=== PATIENT | male | born 1975 | race Caucasian/White ===

== ENCOUNTER 2020-11-25 08:58 | Emergency (ER) | payer OTHER ==
--- NOTE | 2020-11-25 10:11 | EDM.PDOC ---
ED HPI GENERAL MEDICAL PROBLEM - General Chief Complaint: ENT Problem Stated Complaint: L EYE IS SWOLLEN W/MINOR PAIN Time Seen by Provider: 11/25/20 09:35 - History of Present Illness INITIAL COMMENTS - FREE TEXT/NARRATIVE: History of present illness: [] The patient has 2 days of irritation of the left eye. It doesn't affect his vision. He has no systemic signs of illness. 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 The patient's vision is verified by nurses and is excellent in both eyes. The patient has erythema and swelling especially in the lower lid. Review of systems: As per history of present illness and below otherwise all systems reviewed and negative. Past medical history: As per history of present illness and as reviewed below otherwise noncontributory. Surgical history: As per history of present illness and as reviewed below otherwise noncontributory. Social history: No reported history of drug or alcohol abuse. Family history: As per history of present illness and as reviewed below otherwise noncontributory. Physical exam: Constitutional - well developed, well-nourished and in no acute distress HEENT - normocephalic, no evidence of trauma - external nose and mouth normal - no mass in neck and no JVD - mucosae moist EYES - full EOM, PERRL, no icterus -foreign body search negative including lid eversion. Fluorescein exam negative for corneal involvement. Anterior chamber normal. The patient has full extraocular motion with no pain. The palpebral conjunctiva and the lower lid is extremely inflamed with swelling and some discharge along the lash line. Patient also has a small white lesion just inside the everted lower lid. Respiratory - no respiratory distress, equal bilateral expansion Musculoskeletal no gross deformity of long bones or joints - no tenderness, swelling or edema Neurologic - Alert and oriented times four - CN II-XII grossly intact - motor sensory and coordination symmetrically normal Psychiatric - appropriate mood and affect with normal thought content Hematologic - No petechiae or purpura - mucosa appropriate color and sclera not pale - normal nail bed color and refill Integument - no rash or evidence of trauma - normal turgor Diagnostics: [] Therapeutics: [] Impression: [] Plan: [] Definitive disposition and diagnosis as appropriate pending reevaluation and review of above. left eye Pain Score (Numeric/FACES): 4 - Related Data Allergies Allergy/AdvReac Type Severity Reaction Status Date / Time No Known Allergies Allergy Verified 11/25/20 09:37 Home Meds: Home Meds Ciprofloxacin [Ciloxan 0.3% Ophth Soln] 1 - 2 drop OP Q4H #5 ml 11/25/20 [Rx] Past Medical History - Past Health History Medical/Surgical History: Denies Medical/Surgical History HEENT History: Reports: None Cardiovascular History: Reports: None Respiratory History: Reports: None Gastrointestinal History: Reports: None Genitourinary History: Reports: None Neurological History: Reports: None Psychiatric History: Reports: None Endocrine/Metabolic History: Reports: None Hematologic History: Reports: None Immunologic History: Reports: None Oncologic (Cancer) History: Reports: None Dermatologic History: Reports: None - Infectious Disease History Infectious Disease History: Reports: None - Past Surgical History Head Surgeries/Procedures: Reports: None GI Surgical History: Reports: Appendectomy Musculoskeletal Surgical History: Reports: Shoulder Surgery Social & Family History - Family History Family Medical History: No Pertinent Family History Cardiac: Reports: CAD, Heart Failure Respiratory: Reports: Asthma - Tobacco Use Tobacco Use Status *Q: Never Tobacco User Second Hand Smoke Exposure: No - Caffeine Use Caffeine Use: Reports: None - Recreational Drug Use Recreational Drug Use: No ED ROS GENERAL - Review of Systems Review Of Systems: Comprehensive ROS is negative, except as noted in HPI. ED EXAM, GENERAL - Physical Exam Exam: See Below Free Text/Narrative:: My physical exam is in the HPI Course - Vital Signs Last Recorded V/S: Last Vital Signs Temp 36.6 C 11/25/20 09:10 Pulse 82 11/25/20 09:10 Resp 20 11/25/20 09:10 BP 136/85 11/25/20 09:10 Pulse Ox 97 11/25/20 09:10 Departure - Departure Time of Disposition: 10:08 Disposition: Home, Self-Care 01 Condition: Good Clinical Impression: Blepharitis, left eye, Conjunctivitis, left eye - Discharge Information Prescriptions: Ciprofloxacin [Ciloxan 0.3% Ophth Soln] 1 - 2 drop OP Q4H #5 ml Instructions: Blepharitis, [id number] Referrals: Zhang Scott MD [Primary Care Provider] - Edwin Pedersen MD [Ordering Only Provider] - Additional Instructions: Use the drops and if things get worse see the administration manager to return. Gideon [facility] - Primary Care [address] [place] [address] [facility] [address] [place] [address] The following information is given to patients seen in the emergency department who are being discharged to home. This information is to outline your options for follow-up care. We provide all patients seen in our emergency department with a follow-up referral. The need for follow-up, as well as the timing and circumstances, are variable depending upon the specifics of your emergency department visit. If you don't have a primary care physician on staff, we will provide you with a referral. We always advise you to contact your personal physician following an emergency department visit to inform them of the circumstance of the visit and for follow-up with them and/or the need for any referrals to a consulting specialist. The emergency department will also refer you to a specialist when appropriate. This referral assures that you have the opportunity for follow-up care with a specialist. All of these measure are taken in an effort to provide you with optimal care, which includes your follow-up. Under all circumstances we always encourage you to contact your private physician who remains a resource for coordinating your care. When calling for follow-up care, please make the office aware that this follow-up is from your recent emergency room visit. If for any reason you are refused follow-up, please contact the [facility] Emergency Department at and asked to speak to the emergency department charge nurse. Sepsis Event Note (ED) - Evaluation Sepsis Screening Result: No Definite Risk - Focused Exam Vital Signs: Vital Signs Temp Pulse Resp BP Pulse Ox 11/25/20 09:10 36.6 C 82 20 136/85 97
== END 2020-11-25 10:24 | disposition home or self-care (01) ==
LOC: MW.ED 08:58
DX: H10.502 Unspecified blepharoconjunctivitis, left eye (principal)
CPT/HCPCS: 99283